=== PATIENT | male | born 1995 | race Asian ===

== ENCOUNTER 2019-12-19 14:44 | Emergency (ER) | payer OTHER ==
[2019-12-19 14:55] VITALS: BP 128/82
--- NOTE | 2019-12-19 15:15 | UC ---
Hand/Wrist HPI - HPI Summary HPI Summary: About 12:30 this afternoon he was playing ball and injured his right thumb. He points to his thenar eminence just proximal to his MPJ. He can move it fine but it hurts. - History Of Current Complaint Chief Complaint: UCUpperExtremity Stated Complaint: THUMB INJURY Time Seen by Provider: 12/19/19 15:09 Hx Obtained From: Patient Onset/Duration: Sudden Onset Severity Initially: Moderate Severity Currently: Moderate Pain Intensity: 5 Character Of Pain: Sharp, Aching Aggravating Factor(s): Movement, Flexion, Extension, Abduction, Adduction Alleviating Factor(s): Nothing - Allergies/Home Medications Allergies/Adverse Reactions: Allergies Allergy/AdvReac Type Severity Reaction Status Date / Time No Known Allergies Allergy Verified 12/19/19 14:55 Home Medications: Home Medications NK [No Home Medications Reported] 12/19/19 [History Confirmed 12/19/19] PMH/Surg Hx/FS Hx/Imm Hx Previously Healthy: Yes - Surgical History Surgical History: Yes Surgery Procedure, Year, and Place: [facility] - Social History Alcohol Use: Weekly Substance Use Type: None Smoking Status (MU): Never Smoked Tobacco Review of Systems All Other Systems Reviewed And Are Negative: Yes Constitutional: Positive: Negative Motor: Positive: Negative Neurovascular: Positive: Negative Musculoskeletal: Positive: Other: - Pain with movement Neurological: Positive: Negative Physical Exam - Summary Physical Exam Summary: Is pleasant and cooperative, well-developed well-nourished. Triage Information Reviewed: Yes Appearance: Well-Appearing Vital Signs: Initial Vital Signs Temp 99.4 F 12/19/19 14:52 Pulse 76 12/19/19 14:52 Resp 18 12/19/19 14:52 BP 128/82 12/19/19 14:52 Pulse Ox 99 12/19/19 14:52 Vital Signs Reviewed: Yes Musculoskeletal Exam: Other - Tender over the volar MPJ as well as the lateral area of the right thumb. There is no ligamentous laxity. Neurological Exam: Normal Skin Exam: Normal Diagnostics - Radiology Right Thumb Radiology Interpretation Completed By: Radiologist Summary of Radiographic Findings: No Acute Process Hand/Wrist Course/Dx - Course Course Of Treatment: I am concern for the possibility of a gamekeeper's thumb although I can't detect ligamentous laxity at this time. I placed him in a thumb spica and recommended follow-up with orthopedics. - Differential Dx/Diagnosis Provider Diagnosis: Sprain of right thumb Discharge ED - Sign-Out/Discharge Documenting (check all that apply): Patient Departure All imaging exams completed and their final reports reviewed: Yes - Discharge Plan Condition: Stable Disposition: HOME Patient Education Materials: Skier's Thumb (ED) Referrals: No Primary Care Phys,NOPCP [Primary Care Provider] - Robert Stevenson MD [Medical Doctor] - - Billing Disposition and Condition Condition: STABLE Disposition: Home
== END 2019-12-19 16:10 | disposition home or self-care (01) ==
LOC: UCEAST 14:44
DX: S63.601A Unspecified sprain of right thumb, initial encounter (principal); X58.XXXA Exposure to other specified factors, initial encounter; Y93.79 Activity, other specified sports and athletics; Y92.9 Unspecified place or not applicable
CPT/HCPCS: 99201; G0463